=== PATIENT | male | born 1990 | race Caucasian/White ===

== ENCOUNTER 2016-06-15 12:08 | Inpatient (IN) | payer OTHER ==
[~2016-06-15] VITALS: Ht 175.3 cm; Wt 79.4 kg
--- NOTE | 2016-06-15 12:13 | NUR ---
PT SENT TO ED BY URGENT CARE FOR EVAL OF ABD PAIN, SUDDEN ONSET AT 0500, WOKE PT UP OUT OF SLEEP. DENIES N/V/D. DENIES TERRELL S/S. PER MD AT URGENT CARE PT HAD X-RAY THAT SHOWED DILATED BOWEL LOOPS. SENT TO ED TO R/O SBO.
--- NOTE | 2016-06-15 12:34 | ED GI/GU/ABDOMINAL COMPLAINT ---
History of Present Illness General Chief Complaint: Abdominal Pain/Flank Pain Stated Complaint: ABDOMINAL PAIN Source: patient Exam Limitations: no limitations Vital Signs & Intake/Output Vital Signs & Intake/Output Vital Signs Date Time Temp Pulse Resp B/P B/P Pulse O2 O2 Flow FiO2 Mean Ox Delivery Rate 06/15 1748 98.5 74 22 158/102 97 Room Air 06/15 1653 96.8 70 18 155/84 98 Room Air 06/15 1431 97.3 88 20 157/87 98 Room Air 06/15 1216 97.1 80 20 160/90 97 Room Air Allergies Coded Allergies: No Known Allergies (06/15/16) Reconcile Medications No Known Home Medications Triage Note: PT SENT TO ED BY URGENT CARE FOR EVAL OF ABD PAIN, SUDDEN ONSET AT 0500, WOKE PT UP OUT OF SLEEP. DENIES N/V/D. DENIES S/S. PER MD AT URGENT CARE PT HAD X-RAY THAT SHOWED DILATED BOWEL LOOPS. SENT TO ED TO R/O SBO. Triage Nurses Notes Reviewed? 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 Symptoms still persisted throughout the day which was made worse with minimal amounts of eating food and drinking fluids. Patient was evaluated at an urgent care facility and patient was advised to present to emergency room for abdominal x-ray findings concerning for small bowel obstruction. Patient denies any nausea vomiting fever chills dysuria hematuria testicular pain or swelling Last bowel movement was yesterday no blood no melena noted. (TIMA BARRIGA) Past History Travel History Traveled to [place] past 21 day No Medical History Any Pertinent Medical History? see below for history Respiratory: asthma Cancer(s): benign l/s tumor Surgical History Surgical History: L/S BENIGN TUMOR EXCISION Psychosocial History What is your primary language Occitan Tobacco Use: Never used ETOH Use: denies use Illicit Drug Use: denies illicit drug use Family History Hx Contributory? No (TIMA BARRIGA) Review of Systems Review of Systems Constitutional: Reports: no symptoms. EENTM: Reports: no symptoms. Respiratory: Reports: no symptoms. Cardiovascular: Reports: no symptoms. GI: Reports: see HPI, abdominal pain. Genitourinary: Reports: no symptoms. Musculoskeletal: Reports: no symptoms. Skin: Reports: no symptoms. Neurological/Psychological: Reports: no symptoms. Hematologic/Endocrine: Reports: no symptoms. Immunologic/Allergic: Reports: no symptoms. All Other Systems: Reviewed and Negative (TIMA BARRIGA) Physical Exam Physical Exam General Appearance: no apparent distress, alert, comfortable Gastrointestinal: normal bowel sounds, soft, MILD GENERALIZED ABDOMINAL PAIN NOTED Comments: HEENT: Normal EENT exam, Neck: Supple, no lymphadenopathy, normal range of motion without pain or tenderness Back: Nontender, no CVA tenderness. Cardiovascular: Regular rate and rhythms no murmurs rubs or gallops, normal JVP Respiratory: Chest nontender. No respiratory distress.breath sounds clear to auscultation bilaterally Extremity: No edema, no calf tenderness to palpation, normal and equal pulses. Neuro: Alert oriented x3, motor sensory normal, Skin: No appreciable rash on exposed skin, skin is warm and dry. Psych: Mood and affect is normal, memory and judgment is normal. Core Measures ACS in differential dx? No Severe Sepsis Present: No Septic Shock Present: No (TIMA BARRIGA) Progress Differential Diagnosis: AAA, AMI, appendicitis, biliary colic, bowel obstruction , colon cancer, cholecystitis, diverticulitis, epididymitis, esophageal varices, gastritis, hepatitis, hernia, hemorrhoids, ischemic bowel, inflamm bowel dis, Janeth-Emelina tear, orchitis, pancreatitis, prostatitis, peptic ulcer, PUD/GERD, perforated viscous, pyelonephritis, SBO, testicular torsion, ureterolithiasis, urinary retention, urethritis, UTI/pyelo Plan of Care: Orders Procedure Date/time Status CBC WITHOUT DIFFERENTIAL 06/16 06 Active BASIC ELECTROLYTES PLUS BUN&CR 06/16 0600 Active Nothing by Mouth 06/15 D Active Admit to inpatient 06/15 1600 Active Pathway - chart 06/15 1554 Active Patient Data 06/15 1554 Active Code Status 06/15 1554 Active Add-on Test (ER Only) 06/15 1506 Active LIPASE 06/15 1300 Complete AMYLASE 06/15 1300 Complete PARTIAL THROMBOPLASTIN TIME 06/15 1239 Complete PROTHROMBIN TIME 06/15 1239 Complete LACTIC ACID 06/15 1239 Complete COMPREHENSIVE METABOLIC PANEL 06/15 1239 Complete CBC WITHOUT DIFFERENTIAL 06/15 1239 Complete TYPE & SCREEN (NOT X-MATCH) 06/15 1239 Complete Admit to inpatient 06/15 UNK Active VTE Mechanical Prophylaxis 06/15 UNK Active Vital Signs 06/15 UNK Active Intake & Output 06/15 UNK Active Activity/Ambulation 06/15 UNK Active Current Medications Sig/Kimberley Start time Last Medication Dose Stop Time Status Admin Pantoprazole Sodium 40 MG DAILY 06/16 1000 AC (Protonix) Acetaminophen 650 MG Q6PRN PRN 06/15 1600 AC (Tylenol) Morphine Sulfate 2 MG Q3P PRN 06/15 1600 AC (Morphine) Ondansetron HCl 4 MG Q6P PRN 06/15 1600 AC (Zofran) Sodium Chloride 1,000 ML .Q8H 06/15 1600 AC 06/15 (Normal Saline 0.9%) 1606 Laboratory Tests 06/15/16 1539: Lactic Acid Cancelled 06/15/16 1300: Anion Gap 13, Estimated GFR > 60, BUN/Creatinine Ratio 15.6, Glucose 109 H, Lactic Acid 1.1, Calcium 9.6, Total Bilirubin 0.9, AST 26, ALT 44, Alkaline Phosphatase 90, Total Protein 8.8 H, Albumin 4.6, Globulin 4.2, Albumin/ Globulin Ratio 1.1, Amylase 47, Lipase 26, PT 14.6 H, INR 1.40 H, APTT 34, CBC w Diff MAN DIFF ORDERED, RBC 5.83, MCV 88.9, MCH 29.7, RDW 12.9, MPV 8.2, Gran % 88.2 H, Lymphocytes % 7.7 L, Monocytes % 3.7, Eosinophils % 0.3, Basophils % 0.1, Absolute Granulocytes 11.0 H, Absolute Lymphocytes 1.0 L, Absolute Monocytes 0.5, Absolute Eosinophils 0, Absolute Basophils 0, Platelet Estimate VERIFIED BY SMEAR, Normocytic RBCs VERIFIED, Normochromic RBCs VERIFIED, PUBS MCHC 33.4 06/15/16 1254: Amylase Cancelled, Lipase Cancelled Patient on initial examination was in no apparent distress. X-rays from outpatient physician one urgent care facility could not be ascertained however CT scan will be ordered for patient. 06/15/2016 2:22:13 PM patient was reevaluated and had significant resolution of his presenting abdominal pain. Again patient is resting comfortably bedside. CT scan is currently pending blood work was essentially unremarkable I discussed CT scan findings with radiologist for concerns of intussusception and partial small bowel up structure in an concerns of mesenteric adenitis Discussed CT scan findings and patient's symptoms with PT and family members in which they were made aware and given copies of CT scan. I discussed patient with surgical PA and which she discussed with me that Carmen Espinoza MD will be admitting patient under his service. At this time IT IS DISCUSSED to me that there is no emergent surgical intervention for patient. Patient was placed nothing by mouth. Discussed disposition and plan with family and patient and at this time they have no questions (KEENA CRUZ,TIMA) Diagnostic Imaging: Viewed by Me: CT Scan. Discussed w/RAD: CT Scan. Radiology Impression: acute abnormality Initial ED EKG: none Comments: PATIENT: YOAV DOWNS PRESENT AGE: 26 PATIENT ACCOUNT NO: [id number] : 92 LOCATION: [facility] ORDERING PHYSICIAN: TIMA CRUZ SERVICE DATE: 06/15/16 EXAM TYPE: CAT - CT ABD & PELVIS W IV CONTRAST Addendum: These findings were discussed with NANCY Gusman via telephone at 3:00 PM on 06/15/2016. Addendum Signed by: LOLA PURVIS MD 06/15/16 3646 EXAMINATION: CT ABDOMEN AND PELVIS WITH CONTRAST CLINICAL INFORMATION: Periumbilical pain. Evaluate for small bowel obstruction. COMPARISON: No relevant prior studies are available for comparison. TECHNIQUE: Multidetector volumetric imaging was performed of the abdomen and pelvis before and after the IV administration of 95 mL of Optiray 320 intravenous contrast. Sagittal and coronal reformatted images were obtained on the technologist's workstation. DLP: 300.66 mGy-cm FINDINGS: LUNG BASES: A 4 mm soft tissue nodule seen within the right lower lobe on series 2 image 07/15. The lung bases are otherwise clear. LIVER, GALLBLADDER, AND BILIARY TREE: The liver is normal in size, shape, and attenuation. No focal hepatic lesion or biliary ductal dilatation is present. The gallbladder is unremarkable with no evidence of radiopaque gallstones, gallbladder wall thickening, or obvious pericholecystic inflammatory changes. PANCREAS: Unremarkable. SPLEEN: Unremarkable. ADRENAL GLANDS: Unremarkable. KIDNEYS AND URETERS: The kidneys are normal in size, shape, and attenuation. No hydronephrosis, hydroureter, or calculi seen. No perinephric stranding. BLADDER: Unremarkable. GASTROINTESTINAL TRACT: There is invagination of the distal ileum into the cecum with associated distal small bowel dilatation and fecalization, consistent with an intussusception and partial small bowel obstruction. Air and stool is seen within the colon. An underlying lesion causing the intussusception cannot be excluded and follow-up with direct visualization is recommended upon resolution of the intussusception. The appendix is not identified. There is no intra-abdominal free air or free fluid. ABDOMINAL WALL: There is a small fat-containing periumbilical hernia. LYMPH NODES: There are multiple prominent lymph nodes within the right lower quadrant, which can be seen in the setting of mesenteric adenitis. This can predispose patients to intussusception. VASCULAR: Contrast opacifies the abdominal aorta and its branch vessels. The abdominal aorta is nondilated. The IVC is unremarkable. PELVIC VISCERA: The prostate and seminal vesicles are unremarkable. OSSEOUS STRUCTURES: There is no lytic or blastic osseous lesion. IMPRESSION: 1. Intussusception of the terminal ileum into the cecum causing a partial small bowel obstruction. Adjacent prominent lymph nodes which could represent mesenteric adenitis which can predispose to an intussusception. An underlying lesion causing the intussusception cannot be excluded and follow-up with direct visualization is recommended upon resolution. 2. Small 4 mm nodule within the right lower lobe. A nonemergent dedicated chest CT could be considered to help further evaluate. Fleischner criteria for lung nodule follow-up is attached below. (TIMA BARRIGA) Departure Departure Disposition: STILL A PATIENT Condition: Guarded Clinical Impression Primary Impression: Intussusception of cecum Secondary Impressions: Abdominal pain, Bowel obstruction, Mesenteric adenitis, Pulmonary nodule Referrals: PATIENT HAS NO PRIMARY CARE DR (PCP/Family) Departure Forms: Customer Survey General Discharge Information Prescriptions: Current Visit Scripts No Known Home Medications Admission Note Spoke With: DAR DAVE,CARMEN Reynoso Documentation of Exam: Documentation of any treatments & extenuating circumstances including Concerns Regarding Discharge (functional status, medication knowledge or non-compliance, living conditions, etc.) that warrant an admission rather than observation: [ Carmen Espinoza MD will be admitting patient under his service for concerns of intussusception and small bowel obstruction patient will require possible repeat imaging surgery consultation patient also may require emergent surgical intervention if symptoms deteriorate. Outpatient treatment at this time due to critical findings with the medically harmful] (TIMA BARRIGA) PA/ELECTRICAL CONTINUITY INSPECTOR Co-Sign Statement Statement: ED Attending supervision documentation- [] I saw and evaluated the patient. I have also reviewed all the pertinent lab results and diagnostic results. I agree with the findings and the plan of care as documented in the PA's/ELECTRICAL CONTINUITY INSPECTOR's documentation. [X] I have reviewed the ED Record and agree with the PA's/ELECTRICAL CONTINUITY INSPECTOR's documentation. [] Additions or exceptions (if any) to the PAs/ELECTRICAL CONTINUITY INSPECTOR's note and plan are summarized below: [] (BLAIR DAVE,KATY Sorensen) Critical Care Note Critical Care Note Critical Care Time: 30-74 min (TIMA BARRIGA)
--- NOTE | 2016-06-15 12:37 | NUR ---
PT TO ROOM16 BY KEENA PEREIRA PA TO BEDSIDE FOR PT EVAL.
--- NOTE | 2016-06-15 13:14 | NUR ---
BLOOD DRAWN AND SENT TO LAB-[facility]. IV EST. PT MEDICATED WITH MORHPINE PER EMAR FOR ABD PAIN. AWAITING CAT SCAN.
[2016-06-15 13:35] LABS: ABSOLUTE BASOPHIL COUNT 0 /CUMM (0.0-0.2); ABSOLUTE EOSINOPHIL COUNT 0 /CUMM (0.0-0.7); ABSOLUTE MONOCYTE COUNT 0.5 /CUMM (0.10-0.60); BASOPHIL % 0.1 % (0.0-2.0); EOSINOPHIL % 0.3 % (0-5); GRANULOCYTE % 88.2 % (42.2-75.2); HEMATOCRIT 51.8 % (42-52); MEAN CORPUSCULAR HGB 29.7 PG (27.0-31.0); MEAN CORPUSCULAR HGB CONC 33.4 G/DL (33.0-37.0); MEAN CORPUSCULAR VOLUME 88.9 FL (80.0-94.0); MEAN PLATELET VOLUME 8.2 FL (7.4-10.4); PLATELET COUNT 241 /CUMM (130-400); RBC DISTRIBUTION WIDTH 12.9 % (11.5-14.5); RED BLOOD CELL CT 5.83 /CUMM (4.70-6.10); WHITE BLOOD CELL COUNT 12.4 /CUMM (4.8-10.8)
[2016-06-15 13:43] LABS: PT 14.6 SEC (9.4-12.5); PTT 34 SEC (25-37)
--- NOTE | 2016-06-15 14:09 | NUR ---
PT TO CAT SCAN BY STRETCHER.
--- NOTE | 2016-06-15 14:17 | NUR ---
PT RETURNED FROM CT, AWAITING RESULTS.
--- NOTE | 2016-06-15 14:47 | CT SCAN REPORT ---
EXAMINATION: CT ABDOMEN AND PELVIS WITH CONTRAST CLINICAL INFORMATION: Periumbilical pain. Evaluate for small bowel obstruction. COMPARISON: No relevant prior studies are available for comparison. TECHNIQUE: Multidetector volumetric imaging was performed of the abdomen and pelvis before and after the IV administration of 95 mL of Optiray 320 intravenous contrast. Sagittal and coronal reformatted images were obtained on the technologist's workstation. DLP: 300.66 mGy-cm FINDINGS: LUNG BASES: A 4 mm soft tissue nodule seen within the right lower lobe on series 2 image 07/15. The lung bases are otherwise clear. LIVER, GALLBLADDER, AND BILIARY TREE: The liver is normal in size, shape, and attenuation. No focal hepatic lesion or biliary ductal dilatation is present. The gallbladder is unremarkable with no evidence of radiopaque gallstones, gallbladder wall thickening, or obvious pericholecystic inflammatory changes. PANCREAS: Unremarkable. SPLEEN: Unremarkable. ADRENAL GLANDS: Unremarkable. KIDNEYS AND URETERS: The kidneys are normal in size, shape, and attenuation. No hydronephrosis, hydroureter, or calculi seen. No perinephric stranding. BLADDER: Unremarkable. GASTROINTESTINAL TRACT: There is invagination of the distal ileum into the cecum with associated distal small bowel dilatation and fecalization, consistent with an intussusception and partial small bowel obstruction. Air and stool is seen within the colon. An underlying lesion causing the intussusception cannot be excluded and follow-up with direct visualization is recommended upon resolution of the intussusception. The appendix is not identified. There is no intra-abdominal free air or free fluid. ABDOMINAL WALL: There is a small fat-containing periumbilical hernia. LYMPH NODES: There are multiple prominent lymph nodes within the right lower quadrant, which can be seen in the setting of mesenteric adenitis. This can predispose patients to intussusception. VASCULAR: Contrast opacifies the abdominal aorta and its branch vessels. The abdominal aorta is nondilated. The IVC is unremarkable. PELVIC VISCERA: The prostate and seminal vesicles are unremarkable. OSSEOUS STRUCTURES: There is no lytic or blastic osseous lesion. IMPRESSION: 1. Intussusception of the terminal ileum into the cecum causing a partial small bowel obstruction. Adjacent prominent lymph nodes which could represent mesenteric adenitis which can predispose to an intussusception. An underlying lesion causing the intussusception cannot be excluded and follow-up with direct visualization is recommended upon resolution. 2. Small 4 mm nodule within the right lower lobe. A nonemergent dedicated chest CT could be considered to help further evaluate. Fleischner criteria for lung nodule follow-up is attached below. Various management parameters for solitary pulmonary nodules are in the literature. According to the Fleischner Society, recommendations for pulmonary nodules are as follows: Nodule size < or = to 4 mm in LOW RISK PATIENTS: No follow up needed. Nodule size < or = to 4 mm in HIGH RISK PATIENTS: Follow up CT at 12 months; if unchanged, no further follow up. Nodule size > 4-6 mm in LOW RISK PATIENTS: Follow up CT at 12 months; if unchanged, no further follow up. Nodule size > 4-6 mm in HIGH RISK PATIENTS: Initial follow up CT at 6-12 months, then at 18-24 months if no change. Nodule size > 6-8 mm in LOW RISK PATIENTS: Initial follow up CT at 6-12 months, then at 18-24 months if no change. Nodule size > 6-8 mm in HIGH RISK PATIENTS: Initial follow up CT at 3-6 months, then 9-12 months and 24 months if no change. Nodule size > 8 mm in LOW RISK PATIENTS: Follow up CT at around 3, 9, and 24 months, dynamic contrast-enhanced CT, PET, and/or biopsy. Nodule size > 8 mm in HIGH RISK PATIENTS: Same as for low-risk patients.
--- NOTE | 2016-06-15 15:04 | NUR ---
NANCY BRINK AT BEDSIDE TO DISCUSS TEST RESULTS AND POC.
--- NOTE | 2016-06-15 15:28 | NUR ---
SURGICAL PA TO BEDSIDE FOR PT EVAL.
--- NOTE | 2016-06-15 15:49 | Admission Core Measures ---
Admission Lab Results I reviewed the following labs: Laboratory Tests 06/15 06/15 1539 1300 Chemistry Sodium (137 - 145 mmol/L) 140 Potassium (3.5 - 5.1 mmol/L) 4.9 Chloride (98 - 107 mmol/L) 100 Carbon Dioxide (22 - 30 mmol/L) 26 Anion Gap (5 - 16) 13 BUN (9 - 20 mg/dL) 14 Creatinine (0.7 - 1.2 mg/dL) 0.9 Estimated GFR (>60 ml/min) > 60 BUN/Creatinine Ratio (7 - 25 %) 15.6 Glucose (65 - 99 mg/dL) 109 H Lactic Acid (0.7 - 2.1 mmol/L) Cancelled 1.1 Calcium (8.4 - 10.2 mg/dL) 9.6 Total Bilirubin (0.2 - 1.3 mg/dL) 0.9 AST (17 - 59 U/L) 26 ALT (21 - 72 U/L) 44 Alkaline Phosphatase (< 127 U/L) 90 Total Protein (6.3 - 8.2 g/dL) 8.8 H Albumin (3.5 - 5.0 g/dL) 4.6 Globulin (1.9 - 4.2 gm/dL) 4.2 Albumin/Globulin Ratio (1.1 - 2.2 %) 1.1 Amylase (30 - 110 U/L) 47 Lipase (23 - 300 U/L) 26 Coagulation PT (9.4 - 12.5 SEC) 14.6 H INR (0.90 - 1.17) 1.40 H APTT (25 - 37 SEC) 34 Hematology CBC w Diff MAN DIFF ORDERED WBC (4.8 - 10.8 /CUMM) 12.4 H RBC (4.70 - 6.10 /CUMM) 5.83 Hgb (14.0 - 18.0 G/DL) 17.3 Hct (42 - 52 %) 51.8 MCV (80.0 - 94.0 FL) 88.9 MCH (27.0 - 31.0 PG) 29.7 RDW (11.5 - 14.5 %) 12.9 Plt Count (130 - 400 /CUMM) 241 MPV (7.4 - 10.4 FL) 8.2 Gran % (42.2 - 75.2 %) 88.2 H Lymphocytes % (20.5 - 51.1 %) 7.7 L Monocytes % (1.7 - 9.3 %) 3.7 Eosinophils % (0 - 5 %) 0.3 Basophils % (0.0 - 2.0 %) 0.1 Absolute Granulocytes (1.4 - 6.5 /CUMM) 11.0 H Absolute Lymphocytes (1.2 - 3.4 /CUMM) 1.0 L Absolute Monocytes (0.10 - 0.60 /CUMM) 0.5 Absolute Eosinophils (0.0 - 0.7 /CUMM) 0 Absolute Basophils (0.0 - 0.2 /CUMM) 0 Platelet Estimate (ADEQUATE) VERIFIED BY SMEAR Normocytic RBCs VERIFIED Normochromic RBCs VERIFIED PUBS MCHC (33.0 - 37.0 G/DL) 33.4 06/15 1254 Chemistry Amylase Cancelled Lipase Cancelled Acute Coronary Syndrome Inclusion Criteria ACS Diagnosis No Inpatient Core Measures LDL Reminder: If No, please order W/I first 24hr of stay Congestive Heart Failure Inclusion Criteria CHF Diagnosis No Cerebrovascular accident Inclusion Criteria CVA/TIA Diagnosis No Inpatient Core Measures Bedside Swallow Eval Reminder: If BSE failed, place ST order Antithrombotic Reminder: Order Antithrombotic Medication by end of day 2 Antithrombotic Reminder: Document Reason Antithrombotic Not ordered by end of day 2 AFIB/Flutter Reminder: If Present, add to problem list AFIB/Flutter Reminder: Order Anticoag Medication for pts with AFIB/Flutter Atherosclerosis Reminder: If Present, add to problem list LDL Reminder: If No, please order W/I first 24hr of stay PT Order Reminder: If No, please order Venous thromboembolism Inpatient Core Measures VTE Risk Factors: No Risk Factors No [facility] VTE prophylaxis d/t VTE low risk No VTE Pharm Prophylaxis d/t VTE low risk Inclusion Criteria - Per Current guidelines, there needs to be overlap - treatment for the first 5 days of Warfarin therapy. - Parenteral Anticoagulation (IV or SC) needs to be - given along with Warfarin therapy. VTE Diagnosis No VTE Type NONE VTE Confirmed by (Test) NONE Problem List As ranked by this Provider includes Assessment & Plan 1. Intussusception HOME MEDS Home Med List No Known Home Medications
--- NOTE | 2016-06-15 16:06 | NUR ---
NS INFUSING PER EMAR.
--- NOTE | 2016-06-15 16:24 | NUR ---
AT BEDSIDE FOR PT EVAL.
--- NOTE | 2016-06-15 16:44 | NUR ---
PT HAS BED ASSIGNMENT 219-1
--- NOTE | 2016-06-15 17:12 | NUR ---
REPORT GIVEN TO [facility], DISTRIBUTION CALLED FOR TRANSPORT.
[2016-06-15 17:48] VITALS: BP 158/102
--- NOTE | 2016-06-15 17:50 | NUR ---
NURSING NOTE: PATIENT'S BP 158/102 UPON ARRIVAL TO FLOOR @ 1736. SURGIAL NANCY LOPEZ WAS NOTIFIED OF ELEVATED BP.
--- NOTE | 2016-06-15 18:46 | History & Physical Pre-Op ---
General Information and HPI History of Present Illness: CC: abdominal pain HPI: 26-year-old nonsmoker nondiabetic whos father had ileocecal resection for Crohn' s disease, who exercises regularly and takes protein supplements, no steroids, was awoken from sleep early this morning at 5:00 with sharp periumbilical abdominal pain it would come in waves intensely at first these are spreading out now he came to the ER had one dose of IV morphine and for the past few hours the discomfort is slightly dissipated but not completely, he's not sure but he may have passed a tiny bit of gas, no nausea no vomiting no unusual meals yesterday other than he went through a large bag of nuts over the course of several hours yesterday into the evening and recalls belching frequently after this before falling asleep. He denies any dysuria any fevers sweats recent flulike symptoms other than allergies no recent antibiotics no family history of appendicitis, and retrospect all long yesterday he was feeling a little bit tired even before the nuts. Otherwise no changes bowel habits, weight or appetite. I've reviewed the [facility]. No history of GERD, PUD, bleeding problems, heart disease or issues with anesthesia. Family history positive for Crohn's disease no diabetes or cancer. Allergies/Medications Allergies: Coded Allergies: No Known Allergies (06/15/16) Home Med list No Known Home Medications Past History Medical History Respiratory: asthma Cancer(s): benign l/s tumor Surgical History Pertinent Surgical History: L/S BENIGN TUMOR EXCISION Past Family/Social History Psychosocial History ETOH Use: denies use Illicit Drug Use: denies illicit drug use Review of Systems Review of Systems: Constitutional: No fever, sweats or weight loss ENMT: No sore throat Cardiovascular: No chest pain, palpitations or leg swelling Respiratory: No shortness of breath, cough, or sputum or dyspnea on exertion GI: No GERD or bleeding per rectum : No dysuria or hematuria Musculoskeletal: No new muscle weakness, bone or joint pain Skin / Breast: No jaundice, rashes or itching Psychiatric: No history of drug or alcohol abuse no depression or anxiety Hematologic / lymphatic system: No problems with excessive bleeding, bruising, or blood clots Exam & Diagnostic Data Last 24 Hrs of Vital Signs/I&O I reviewed Vital Signs Date Time Temp Pulse Resp B/P B/P Pulse O2 O2 Flow FiO2 Mean Ox Delivery Rate 06/15 1748 98.5 74 22 158/102 97 Room Air 06/15 1653 96.8 70 18 155/84 98 Room Air 06/15 1431 97.3 88 20 157/87 98 Room Air 06/15 1216 97.1 80 20 160/90 97 Room Air I reviewed Intake & Output 06/15 1600 06/15 0800 06/15 0000 Intake Total Output Total Balance Patient 175 lb Weight Weight Reported by Patient Measurement Method Physical Exam: Constitutional: pleasant, no acute distress, conversant Eyes: sclera anicteric ENMT: ears and nose atraumatic, moist mucous membranes, good dentition, no lip lesions Neck: Supple, trachea is midline, no cervical or supraclavicular adenopathy and no palpable thyromegaly Cardiovascular: S1, S2, no murmurs, no peripheral edema Respiratory: clear to auscultation with normal respiratory effort and no intercostal retractions GI: abdomen soft, very minimal right-sided abdominal tenderness, positive bowel sounds on auscultation, nondistended, no palpable hepatosplenomegaly Extremities / lymphatics: symmetrically warm, free range of motion no peripheral edema, no cervical, supraclavicular, axillary, or inguinal adenopathy Musculoskeletal: Normal gait and station, no digital cyanosis, good muscle strength and tone no atrophy, motor grossly 5 out of 5 throughout Skin: no jaundice, no rashes warm, nondiaphoretic, no areas of erythema or induration Psychiatric: mood and affect are appropriate and alert and oriented to person place and time Last 24 Hrs of Labs/Eliezer: I reviewed Laboratory Tests 06/15/16 1539: Lactic Acid Cancelled 06/15/16 1300: Anion Gap 13, Estimated GFR > 60, BUN/Creatinine Ratio 15.6, Glucose 109 H, Lactic Acid 1.1, Calcium 9.6, Total Bilirubin 0.9, AST 26, ALT 44, Alkaline Phosphatase 90, Total Protein 8.8 H, Albumin 4.6, Globulin 4.2, Albumin/ Globulin Ratio 1.1, Amylase 47, Lipase 26, PT 14.6 H, INR 1.40 H, APTT 34, CBC w Diff MAN DIFF ORDERED, RBC 5.83, MCV 88.9, MCH 29.7, RDW 12.9, MPV 8.2, Gran % 88.2 H, Lymphocytes % 7.7 L, Monocytes % 3.7, Eosinophils % 0.3, Basophils % 0.1, Absolute Granulocytes 11.0 H, Absolute Lymphocytes 1.0 L, Absolute Monocytes 0.5, Absolute Eosinophils 0, Absolute Basophils 0, Platelet Estimate VERIFIED BY SMEAR, Normocytic RBCs VERIFIED, Normochromic RBCs VERIFIED, PUBS MCHC 33.4 06/15/16 1254: Amylase Cancelled, Lipase Cancelled Assessment/Plan Assessment/Plan: Studies I reviewed the CT scan on PACS myself also discussed it with the radiologist on-call including a pediatric, there is some distal small bowel distention and for equalization which continues into the cecum as if an intussusception appendix is not clearly visible there is also some significant mesenteric adenopathy in the right lower quadrant near this area Impression is 26-year-old otherwise healthy male with a family history of Crohn' s disease now with a small bowel obstruction with what appears to be an intussusception ileocecal, which overall has slightly improved, but I feel we should admit him, nothing by mouth no antibiotics serial exams serial labs it would be very unusual haven't seen before but could somehow this be caused by appendicitis though you think he should have fevers and unrelenting worsening pain. On the other hand this could've just been caused by unusual large meal of nuts, on a background of some mesenteric adenitis. As Ranked By This Provider Problem List: 1. Bowel obstruction 2. Mesenteric adenitis 3. Abdominal pain 4. Intussusception
[2016-06-15 22:15] VITALS: BP 146/98
[2016-06-16 06:54] VITALS: BP 124/80
--- NOTE | 2016-06-16 07:33 | PN- General Surgery ---
See Addendum Subjective Subjective: No acute events overnight. Pt states that his pain has completely resolved. No nausea or emesis. He is passing flatus, but no BM. Otherwise denies MENJIVAR, dizziness, CP, SOB. Labs are being drawn at this time. Objective Vital Signs and I&Os Vital Signs Date Time Temp Pulse Resp B/P B/P Pulse O2 O2 Flow FiO2 Mean Ox Delivery Rate 06/16 0654 97.4 76 20 124/80 97 06/15 2215 98.3 88 18 146/98 99 Room Air 06/15 1748 98.5 74 22 158/102 97 Room Air 06/15 1653 96.8 70 18 155/84 98 Room Air 06/15 1431 97.3 88 20 157/87 98 Room Air 06/15 1216 97.1 80 20 160/90 97 Room Air Intake & Output 06/16 0800 06/16 0000 06/15 1600 06/15 0800 06/15 0000 06/14 1600 Intake Total 725 300 Output Total Balance 725 300 Intake, IV 725 300 Intake, Oral 0 Patient 175 lb 175 lb Weight Weight Reported by Patient Reported by Patient Measurement Method Physical Exam: General: Pt is awake and alert. NAD. Cardiac: Regular Pulmonary: CTA bilaterally. Abdomen: Soft, nondistended. Nontender throughout. Hypoactive BS heard. Ext: no edema Assessment/Plan Assessment/Plan Pt is a 26 yo M with a family hx of Crohn's disease, who was admitted yesterday with intussusception and borderline leukocytosis. Pt is being monitored for signs of appendicitis, however his symptoms have completely resolved and exam is benign. Plan: -F/u morning labs. If normal, ok to advance diet and discharge home. -Continue npo/ivf for now. -Monitor off abx. -Will d/w attending. Core Measures/Miscellaneous Venous Thromboembolism VTE Risk Factors: Acute medical illness VTE Contraindications: No Contraindications VTE Diagnosis: No VTE Type: NONE VTE Confirmed by (Test): NONE Beta Izzy Is Beta Izzy a Home Med? No Antibiotics Is Patient on Antibiotics? No
--- NOTE | 2016-06-16 07:35 | Patient Discharge Instructions ---
Discharge Instructions General Discharge Information You were seen/treated for: Abdominal Pain, Intussusception You had these procedures: Conservative treatment with bowel rest, IV fluids, serial abdominal exams. Watch for these problems: Increasing abdominal pain, fever >101, nausea, vomiting Diet Continue normal diet: Yes Activity Full Activity/No Limits: Yes Acute Coronary Syndrome Inclusion Criteria At DC or during hospital stay patient has or had the following: ACS DIAGNOSIS No Discharge Core Measures Meds if any: Prescribed or Continued at Discharge Meds if any: NOT Prescribed or Continued at Discharge Congestive Heart Failure Inclusion Criteria At DC or during hospital stay patient has or had the following: CHF DIAGNOSIS No Discharge Core Measures Meds if any: Prescribed or Continued at Discharge Meds if any: NOT Prescribed or Continued at Discharge Cerebrovascular accident Inclusion Criteria At DC or during hospital stay patient has or had the following: CVA/TIA Diagnosis No Discharge Core Measures Meds if any: Prescribed or Continued at Discharge Meds if any: NOT Prescribed or Continued at Discharge Venous thromboembolism Inclusion Criteria VTE Diagnosis No VTE Type NONE VTE Confirmed by (Test) NONE Discharge Core Measures - Per Current guidelines, there needs to be overlap - treatment for the first 5 days of Warfarin therapy. - If discharged on Warfarin prior to 5 days of - overlap therapy, the patient will need to be - assessed for post discharge needs including - *Post discharge parental anticoagulation - *Warfarin and/or parental anticoagulation education - *Follow up date to check INR post discharge At least 5 days overlap therapy as Inpatient No Meds if any: Prescribed or Continued at Discharge Note: Overlap Therapy is Warfarin and Anticoagulant Meds if any: NOT Prescribed or Continued at Discharge
[2016-06-16 08:18] LABS: ABSOLUTE BASOPHIL COUNT 0 /CUMM (0.0-0.2); ABSOLUTE EOSINOPHIL COUNT 0.2 /CUMM (0.0-0.7); ABSOLUTE GRANULOCYTE CT 4.5 /CUMM (1.4-6.5); ABSOLUTE LYMPH COUNT 2.2 /CUMM (1.2-3.4); ABSOLUTE MONOCYTE COUNT 0.7 /CUMM (0.10-0.60); BASOPHIL % 0.3 % (0.0-2.0); EOSINOPHIL % 2.5 % (0-5); GRANULOCYTE % 59.3 % (42.2-75.2); MEAN CORPUSCULAR HGB CONC 33.9 G/DL (33.0-37.0); MEAN CORPUSCULAR VOLUME 88.7 FL (80.0-94.0); MEAN PLATELET VOLUME 7.9 FL (7.4-10.4); PLATELET COUNT 214 /CUMM (130-400); RED BLOOD CELL CT 4.93 /CUMM (4.70-6.10); WHITE BLOOD CELL COUNT 7.6 /CUMM (4.8-10.8)
[2016-06-16 09:20] LABS: HEMATOCRIT 43.8 % (42-52)
[2016-06-16 14:56] VITALS: BP 116/70
--- NOTE | 2016-06-16 16:15 | Discharge Summary ---
Visit Information Visit Dates Admission Date: 06/15/16 Discharge Date: 06/16/16 Hospital Course Course Attending Physician: CARMEN DODGE MD Primary Care Physician: PATIENT HAS NO PRIMARY CARE DR Hospital Course: Follow-up of intussusception, patient feels better no abdominal pain it stopped last night he's passed gas several times since, later in the day he moved his bowels and tolerating a small amount of regular food. Denies any sweats fevers or chills or nausea. Vital signs reviewed the pressure 124/80 pulse 76 respirations 18 temperature 97.4 he's been afebrile Constitutional: no acute distress no pain Eyes: sclera anicteric ENMT: moist mucous membranes Cardiovascular: S1-S2 no murmurs no peripheral edema Respiratory: clear to auscultation with normal respiratory effort and no intercostal retractions GI: abdomen soft nontender nondistended Extremities / lymphatics: free range of motion no peripheral edema Skin: no jaundice no rashes warm, nondiaphoretic Psychiatric: mood and affect are appropriate and alert and oriented to person place and time Labs today electrolytes and CBC are normal hemoglobin in the 14 range down from 17 Impression is resolved intussusception doubt appendicitis given his rapid improvement and without antibiotics, there may have been an element of dehydration and mesenteric adenitis but the large quantity of nuts probably contributed as well also given how quickly he improved. I advised him to go home and monitor for signs of recurrence and follow up with us in the office avoid straining dehydration. Allergies: Coded Allergies: No Known Allergies (06/15/16) Disposition Summary Disposition Principal Diagnosis: Ileocolic intussusception Mesenteric adenitis, dehydration Additional Diagnosis: None Discharge Disposition: hospice - home Discharge Instructions General Discharge Information Code Status: Full Code Patient's Diet: Avoid large quantities of chewy food Patient's Activity: No heavy lifting Follow-Up Instructions/Appts: Next week in the office or sooner as issues arise Copies To: CARMEN DODGE MD
== END 2016-06-16 17:33 | DRG 247 ==
LOC: ERH 12:08 → ERHI 16:00 → 2NB 16:00 → ENRESERV 16:35 → 2NB 17:34
PROVIDERS: Physician Assistant; Physician Assistant Surgical; ADMIT Surgery
DX: K56.1 Intussusception (principal); I88.0 Nonspecific mesenteric lymphadenitis; E86.0 Dehydration; K56.69 Other intestinal obstruction
CPT/HCPCS: 2NSBP; 36415; 74177; 82436; 96374; 99291; J2405